=== PATIENT | female | born 1950 | race Caucasian/White ===

== ENCOUNTER → 2017-06-23 | Outpatient (CLI) | payer OTHER, MEDICAID ==
--- NOTE | 2017-06-23 14:05 | MRI ---
History: Right knee pain and patellofemoral chondromalacia. EXAM: NONCONTRAST MRI EXAMINATION OF THE RIGHT KNEE JOINT. Technique: Multi sequence and multiplanar MRI images of the right knee joint were performed at 1.5 [address] using T1, T2, and proton density sequences without IV contrast. Comparison: None. FINDINGS: There is advanced/severe grade 3 superior patellar and patellar facet chondromalacia appreciated. The re is moderate patellofemoral compartment DJD also observed. No significant or severe femoral trochle a or femorotibial chondromalacia is evident. The ACL and PCL are both intact. No displaced meniscal t ear is seen. The collateral ligaments are intact without injury or abnormality. There is a small knee joint effusion. The extensor mechanism of the knee joint is intact. No acute or stress fracture is s een. No aggressive bone marrow lesion is observed. No other knee joint injury or musculoskeletal abno rmalities identified on this examination. IMPRESSION: Advanced/severe Grade 3 superior patellar, median patellar ridge, and bilateral patellar facet chondr omalacia/articular cartilage loss with concomitant patellar osteoarthritis. No other MRI evidence for internal injury or derangement of the knee joint is appreciated. Reported By:
== END ==
LOC: RAD 11:54
PROVIDERS: ATTEND Orthopaedic Surgery
DX: M22.41 Chondromalacia patellae, right knee (principal)
CPT/HCPCS: 73721

== ENCOUNTER → 2017-08-02 | Outpatient (CLI) | payer OTHER, MEDICAID ==
--- NOTE | 2017-08-02 12:26 | RAD ---
Examination: Chest, PA and lateral views History: Preop Findings: Normal appearance of heart, lungs, mediastinum and pleural spaces. Impression: No acute or significant chest findings. Reported By:
[2017-08-02 12:35] LABS: BASOPHILS # (AUTO) 0.1 X10^3/uL (0.0-0.1); BASOPHILS % (AUTO) 0.8 % (0.2-1.0); EOSINOPHILS # (AUTO) 0.1 x10^3/uL (0.0-0.2); HEMATOCRIT 39.6 % (36.0-47.0); HEMOGLOBIN 13.5 g/dL (12.0-16.0); LYMPHOCYTES # (AUTO) 2.1 X10^3/uL (1.3-2.9); LYMPHOCYTES % (AUTO) 33.5 % (21.0-51.0); MEAN CORPUSCULAR HEMOGLOBIN 29.1 pg (27.0-34.0); MEAN CORPUSCULAR HGB CONC 34.1 g/dL (33.0-35.0); MEAN CORPUSCULAR VOLUME 85.5 fL (80.0-100.0); MONOCYTES # (AUTO) 0.4 x10^3/uL (0.3-0.8); MONOCYTES % (AUTO) 6.7 % (0.0-13.0); NEUTROPHILS # (AUTO) 3.6 x10^3/uL (2.2-4.8); PLATELET COUNT 273 X10^3/uL (150.0-450.0); RED BLOOD COUNT 4.63 X10^6/uL (3.5-5.4); RED CELL DISTRIBUTION WIDTH 14.2 % (11.6-16.5); WHITE BLOOD COUNT 6.2 X10^3/uL (3.6-10.0)
[2017-08-02 12:36] LABS: BILIRUBIN,URINE NEGATIVE (NEGATIVE); BLOOD/HEMOGLOBIN,URINE NEGATIVE (NEGATIVE); GLUCOSE, URINE NEGATIVE (NEGATIVE); KETONES,URINE NEGATIVE (NEGATIVE); LEUKOCYTE ESTERASE ,URINE 2+ (NEGATIVE); NITRITES,URINE NEGATIVE (NEGATIVE); PH,URINE 6.5 (5.0 - 8.0); PROTEIN,URINE NEGATIVE (NEGATIVE); UROBILINOGEN,URINE NORMAL (NORMAL)
[2017-08-02 12:47] LABS: APPEARANCE,URINE CLEAR (CLEAR); BACTERIA,URINE NEGATIVE /HPF (NEGATIVE); COLOR,URINE YELLOW (YELLOW); RBC,URINE NONE SEEN /HPF (NEGATIVE); SQUAMOUS EPITHELIAL CELL,UR RARE /HPF (NEGATIVE)
[2017-08-02 12:51] LABS: ALANINE AMINOTRANSFERASE 23 Units/L (12-78); ALBUMIN 3.6 g/dL (3.4-5.0); ALKALINE PHOSPHATASE 71 Units/L (46-116); ASPARTATE AMINO TRANSFERASE 15 Units/L (15-37); BLOOD UREA NITROGEN 16 mg/dL (7-18); CALCIUM 9.1 mg/dL (8.5-10.1); CARBON DIOXIDE 31.1 mmol/L (21-32); CHLORIDE 103 mmol/L (98-107); CREATININE 0.82 mg/dL (0.55-1.02); SODIUM 133 mmol/L (136-145); TOTAL PROTEIN 7.3 g/dL (6.4-8.2); eGFR BLACK RACES > 60 (>60); eGFR NON BLACK RACES > 60 (>60)
[2017-08-02 13:15] LABS: ERYTHROCYTE SEDIMENTATION RATE 13 MM/HOUR (0-20)
== END ==
LOC: LAB 12:05
PROVIDERS: ATTEND Orthopaedic Surgery
DX: Z01.818 Encounter for other preprocedural examination (principal); Z01.810 Encounter for preprocedural cardiovascular examination; Z01.811 Encounter for preprocedural respiratory examination; Z79.899 Other long term (current) drug therapy; Z11.8 Encounter for screening for other infectious and parasitic diseases; M17.11 Unilateral primary osteoarthritis, right knee
CPT/HCPCS: 36415; 71046; 80053; 81001; 85025; 85652; 86140; 87640; 87641; 93005; 93010

== ENCOUNTER → 2017-08-09 | Day surgery (SDC) | payer OTHER, MEDICAID ==
[~2017-08-09] MED LIST: ADRENALINE CHL INJ ONE; ADRENALINE CHL IR ONE; BACTROBAN OINT ONE; BENADRYL INJ 50 MG VIAL IVP PRN; D5 LR 1000 ML 1,000 ML IV ONE; DILAUDID INJ IVP PRN; DIPRIVAN VIAL ONE; FENTANYL INJ 100 mcg ONE; KENALOG INJ 40 MG IM ONE; NS IRRIGATION 1000 ML 1,000 ML with BACITRACIN VIAL 50,000 UNT IR ONE; NS IRRIGATION IR ONE; PERCOCET TAB 5/325 MG PO PRN; PHENERGAN INJ 25 MG IVP PRN; REGLAN INJ 10 MG VIAL IVP PRN; SUPRANE IN ONE; TORADOL 30 MG VIAL ONE; VERSED ONE; XYLOCAINE 2 % (PLAIN) ONE; ZOFRAN INJ 4 MG VIAL IVP PRN; ZOFRAN INJ 4 MG VIAL ONE
[2017-08-09] MEDS: ANCEF 1 GM IV PREMIX* 1 GM/50 ML BAG IV ONE ×2 (08:30→08:40)
[2017-08-09] MEDS: DECADRON INJ ONE ×2 (09:20→10:09)
[2017-08-09] MEDS: MARCAINE 0.25% INJ ONE ×2 (09:20→10:09)
[2017-08-09 12:10] VITALS: BP 111/66
--- NOTE | 2017-08-10 12:59 | OR.GENERIC ---
Post-Op Note Generic - Post-Op Note Operative Report: PREOPERATIVE DIAGNOSIS: RIGHT knee medial meniscal tear and chondromalacia of the patella. POSTOPERATIVE DIAGNOSIS: RIGHT knee 1. complex body tear medial meniscus 2. Chondromalacia changes medial , lateral and patellofemoral compartments. PROCEDURE- RIGHT knee arthroscopic partial medial meniscectomy. RIGHT knee arthroscopic chondroplasty ANESTHESIA: General TOURNIQUET TIME: 54 minutes. BLOOD LOSS: Minimal. SPECIMEN: None. INDICATION- patient is a 66-year-old female who has been dealing with painful knee for months to almost a year now. She has been treated with conservative management without much success. she saw me in my office and medial meniscal tear was suspected and an MRI was ordered. MRI revealed medial meniscal tear. Patient was taken through the natural history and the treatment options. patient opted for a RIGHT knee arthroscopic surgery. The benefits and risks involved with discussed with her As well as the . postoperative period was also explained in detail. Complications including but not limited to infection, neurovascular damage, compartment syndrome, implant breakage, progression of osteoarthritis of the knee, persistence of pain, stiffness of the knee, need for further procedures in the future were explained to them in detail. They verbalized and reported understood. PREOPERATIVE- Patient and the family were met in the preoperative holding area. Consent was obtained again. RIGHT limb was marked. patient was met by the workforce services representative. Patient also got the appropriate antibiotic. PROCEDURE: The patient was brought down to the operating room and transferred from a hospital stretcher to the operating table. General anesthesia was induced and a successful endotracheal intubation was completed. the patient was placed in supine position and the RIGHT tourniquet was applied but was not i Inflated after appropriate padding. The LEFT lower limb was placed in a well-leg sanabria. The bottom of the table was lowered to create 90 of flexion . examination of the RIGHT knee was completed under a Anesthesia. nno gross instability was noted.A thigh post was applied. the RIGHT lower limb was prepped and draped. A proximal thigh tourniquet was inflated and an Esmarch bandage was used to exsanguinate the limb. The tourniquet was then inflated to approximately 100 to 150 mm of mmHg above systolic pressure. The surface landmarks were marked and the proposed lateral portal was marked. The chinyere medial portal was also marked. The portals were infiltrated with local local anesthetic. An 11-blade stab incision was made along the anterolateral aspect for the anterolateral portal. A trocar was then inserted and the arthroscope was then introduced. Once it was confirmed to be within the joint proper, the knee was distended with sterile saline solution. A systematic tour about the knee was performed beginning in the suprapatellar pouch, followed by the patellofemoral region, lateral gutter, posterolateral corner, and then the lateral compartment. Next, the intracondylar notch region was examined and finally, the medial compartment and medial gutter. synovitis was noted in the suprapatellar pouch. No foreign bodies were noticed in the suprapatellar pouch. Grade 3 chondromalacia changes seen on the undersurface of the patella on both the medial as well as the lateral facets. fibrillations hanging from the undersurface of were noted. Correspondingly the trochlea showed grade 2 chondromalacia changes as well as fibrillations. No obvious complete cartilage was noticed. The medial gutter was visualized and was negative for any foreign bodies. The medial compartment was visualized. Grade 2 chondromalacia changes seen in the distal femur as well as proximal tibial surfaces. there was a tear noted on the body of the medial meniscus.The knee was brought into extension and valgus stress applied to visualize the posterior horn. A spinal needle was advanced from the prospective medial portal and was confirmed at the tear would be accessed through the portal. Medial portal established after making a skin incision with a stab #11 knife. A probe passed through the medial portal and the tear of the body of the medial meniscus was probed. It was complex tear of the body which was in the white white region and was not amenable to repair. An up cutting meniscotome was passed through the medial portal and partial medial meniscectomy completed. A shaver was passed through the medial portal and the edges of the meniscus were smoothened. The probe was again passed through the medial portal and the remaining meniscus was found to be no extension of the tear. The rest of the meniscus was probed and was found to be devoid of any significant tears. There was fraying of the medial surface of the medial meniscal body. This was again smoothed and shaved down with a shaver. The intracondylar notch was examined and intact anterior and posterior cruciate ligaments These were tested with a probe and found to be competent without any tears. Now the knee was placed in the [id number] position to open up the lateral compartment. Grade 2 chondromalacia changes seen in the llateral compartment without any copious full -thickness cartilage loss. A shaver was used to smooth and the rest of the meniscus. Again the remaining meniscus was probed and found to be stable with out any obvious tear or extension. The attention was directed to the patellofemoral compartment now. The knee was brought into extension and the shaver was brought in brought in through the medial portal. The fibrillation under the patella was smoothened th the shaver. The arthroscope was removed from the lateral compartment and was placed into the medial portal, and again, a tour of the knee was made this time visualizing it from the medial side and with the arthroscopy probe placed at the lateral portal. There was no further pathology identified. There was no evidence of remaining loose body or other abnormality. All instruments were eventually able to be removed with no evidence of any breakage. The arthroscopy portals were reapproximated using 2-0 nylon in interrupted fashion. Prior to the removal of the arthroscope, 0.5% Marcaine and 2 cc Kenalog was injected into the knee joint before closure. The tourniquet was released. There was no significant bleeding. The wounds were dressed with sterile bandages and a compression wrap from the toes to the mid thigh was placed. The patient was transferred off of the operating table back to a hospital stretcher and taken to the recovery room in fair condition. There was no evidence of any vascular deficit. As the spinal was still in place, we could not fully assess the neurologic status. POSTOPERATIVE PLAN: The patient will be permitted weightbearing as tolerated and is encouraged to frequently flex and extend the knee as well as her ankle. Crutches will be provided for her if she is unable to ambulate without the use of these assistive devices.physical therapy was in the recovery room teaching the patient walking with the help of assistive devices. Appropriate oral analgesics and oral antiinflammatory medications will be provided for the patient. The patient was instructed on ice and elevation to the limb. She will follow up in my office in approximately 6-10 days for postoperative consultation, wound examination, suture removal, and institution of more formalized physical therapy.
== END | disposition home or self-care (01) ==
LOC: SURG1 06:51
PROVIDERS: ATTEND Orthopaedic Surgery
PROC: 0SQC4ZZ Repair Right Knee Joint, Percutaneous Endoscopic Approach (ICD-10-PCS; 2017-08-09)
PROC: 0SBC4ZZ Excision of Right Knee Joint, Percutaneous Endoscopic Approach (ICD-10-PCS; principal; 2017-08-09 08:30)
DX: S83.231A Complex tear of medial meniscus, current injury, right knee, initial encounter (principal); X58.XXXA Exposure to other specified factors, initial encounter; M94.261 Chondromalacia, right knee
CPT/HCPCS: A4222; S0020; J0170; J0690; J1100; J1885; J2001; J2250; J2405; J3010; J3301; J3490; J7120

== ENCOUNTER 2018-01-24 06:39 | Inpatient (IN) ==
[2018-01-24] MEDS ORDERED: D5 LR 1000 ML 1,000 ML IV ONE (06:53)
[2018-01-24] MEDS ORDERED: ANCEF 1 GRAM IV PREMIX* 1 G/50 ML BAG IV ONE (06:53)
[2018-01-24] MEDS ORDERED: FENTANYL INJ 250 mcg ONE (07:09)
[2018-01-24] MEDS ORDERED: NAROPIN 0.75% EPI ONE (07:09)
[2018-01-24 07:28] VITALS: BMI 28.7
[2018-01-24] MEDS ORDERED: NS IRRIGATION IR ONE ×2 (09:46)
[2018-01-24] MEDS ORDERED: BACITRACIN IR ONE ×2 (09:46)
[2018-01-24] MEDS ORDERED: NS IRRIGATION 1000 ML 1,000 ML with BACITRACIN VIAL 50,000 UNIT IR ONE ×2 (09:46)
[2018-01-24] MEDS ORDERED: LR 1000 ML IV 1,000 ML IV ONE (10:17)
[2018-01-24] MEDS ORDERED: DILAUDID INJ ONE (11:15)
[2018-01-24] MEDS ORDERED: BACITRACIN VIAL ONE (11:17)
[2018-01-24] MEDS ORDERED: ZOFRAN INJ 4 MG VIAL IVP PRN ×2 (11:28→15:53)
[2018-01-24] MEDS ORDERED: DILAUDID INJ IVP PRN (11:28)
[2018-01-24] MEDS ORDERED: REGLAN INJ 10 MG VIAL IVP PRN (11:28)
[2018-01-24] MEDS ORDERED: PHENERGAN INJ 25 MG IVP PRN (11:28)
[2018-01-24] MEDS ORDERED: BENADRYL INJ 50 MG VIAL IVP PRN (11:28)
[2018-01-24] MEDS ORDERED: MORPHINE SULFATE PCA 30 MG IV PRN (11:50)
[2018-01-24] MEDS: LR 1000 ML IV 1,000 ML IV SCH (13:15)
[2018-01-24] MEDS ORDERED: XYLOCAINE 2 % (PLAIN) ONE (15:45)
[2018-01-24] MEDS ORDERED: DIPRIVAN VIAL ONE (15:45)
[2018-01-24] MEDS ORDERED: NORCURON INJ 10 MG VIAL ONE (15:45)
[2018-01-24] MEDS ORDERED: NEOSTIGMINE INJ ONE (15:45)
[2018-01-24] MEDS ORDERED: ZOFRAN INJ 4 MG VIAL ONE (15:45)
[2018-01-24] MEDS ORDERED: SUPRANE IN ONE (15:45)
[2018-01-24] MEDS ORDERED: QUELICIN (OR ANECTINE) ONE (15:45)
[2018-01-24] MEDS ORDERED: VERSED ONE (15:45)
[2018-01-24] MEDS ORDERED: ROBINUL ONE (15:45)
--- NOTE | 2018-01-24 16:22 | RAD ---
HISTORY: Postop knee replacement Study: Right knee: Two views Comparison: None Findings: These show a right knee prosthesis to be present. The components are imbedded in methacrylate. A stein rgical drain is present. Gas is noted within the joint space and subcutaneous tissues. Surgical sta ples overlie the anterior knee. IMPRESSION: 1. A right knee prosthesis is present. 2. No complicating features are noted. Reported By:
[2018-01-24] MEDS: VANCOMYCIN HCL 1 GM VIAL 1 G in D5W 250 ML IV 250 ML IV SCH (20:41)
[2018-01-24] MEDS: LOVENOX INJ 30 MG SYR SC SCH (20:42)
[2018-01-25 05:28] LABS: BASOPHILS % (AUTO) 0.3 % (0.2-1.0); HEMATOCRIT 31.5 % (36.0-47.0); HEMOGLOBIN 10.9 g/dL (12.0-16.0); LYMPHOCYTES # (AUTO) 1.5 X10^3/uL (1.3-2.9); LYMPHOCYTES % (AUTO) 11.3 % (21.0-51.0); MEAN CORPUSCULAR HEMOGLOBIN 29.1 pg (27.0-34.0); MEAN CORPUSCULAR HGB CONC 34.7 g/dL (33.0-35.0); MEAN CORPUSCULAR VOLUME 83.9 fL (80.0-100.0); MEAN PLATELET VOLUME 8.6 fL (7.4-11.0); MONOCYTES # (AUTO) 1.2 x10^3/uL (0.3-0.8); MONOCYTES % (AUTO) 8.9 % (0.0-13.0); NEUTROPHILS # (AUTO) 10.5 x10^3/uL (2.2-4.8); NEUTROPHILS % (AUTO) 79.5 % (42.0-75.0); PLATELET COUNT 243 X10^3/uL (150.0-450.0); RED BLOOD COUNT 3.75 X10^6/uL (3.5-5.4); RED CELL DISTRIBUTION WIDTH 13.9 % (11.6-16.5); WHITE BLOOD COUNT 13.2 X10^3/uL (3.6-10.0)
[2018-01-25 05:32] LABS: BLOOD UREA NITROGEN 10 mg/dL (7-18); CALCIUM 8.6 mg/dL (8.5-10.1); CARBON DIOXIDE 31.6 mmol/L (21-32); CHLORIDE 101 mmol/L (98-107); COR NA(FOR HYPERGLY) 137 mmol/L (136-145); CREATININE 0.77 mg/dL (0.55-1.02); SODIUM 136 mmol/L (136-145); eGFR NON BLACK RACES > 60 (>60)
[2018-01-25] MEDS: LR 1000 ML IV 1,000 ML IV SCH ×3 (07:24→11:03)
[2018-01-25] MEDS: LOVENOX INJ 30 MG SYR SC SCH ×2 (08:33→20:29)
[2018-01-25] MEDS: VANCOMYCIN HCL 1 GM VIAL 1 G in D5W 250 ML IV 250 ML IV SCH (08:33)
--- NOTE | 2018-01-25 09:42 | OR.GENERIC ---
Post-Op Note Generic - Post-Op Note Operative Report: PREOPERATIVE DIAGNOSIS: Degenerative arthritis of the RIGHT knee. POSTOPERATIVE DIAGNOSIS: Degenerative arthritis of the RIGHT knee. PROCEDURE PERFORMED: RIGHT Total knee replacement BLOOD LOSS: 50 cc. ANESTHESIA: General. IMPLANT USED FOR PROCEDURE: MARISA triathlon Femur-posterior stabilized , size 4 Tibia-cemented stem, size 4 , stem 1250 mm Patella-symmetric 29 mm 8 mm Tibial bearing insert- posterior stabilized-13 mm, size 4 GROSS INTRAOPERATIVE FINDINGS: Degenerative naranjo of three compartments of the trochlea, the medial, as well as the lateral femoral condyles as well was the plateau. severe genu varum and flexion deformity. loose bodies in the posterior part of the knee. HISTORY: This is a 76-year-old female with complaints of RIGHT knee pain for several years and increased intensity in the past several months where it has affected her activities of daily living. She attempted conservative treatment, which includes anti-inflammatory medications as well as cortisone and Synvisc. This has only provided her with temporary relief. she has had a RIGHT knee arthroscopy which did not help her. It is for that reason, she elected to undergo the above-named procedure. All risks as well as complications were discussed with the patient, which include, but are not limited to infection, deep vein thrombosis, pulmonary embolism, need for further surgery, and further pain. she has agreed to undergo this procedure and a consent was obtained preoperatively. limb was marked. got adductor canal block. got appropriate antibiotics. PROCEDURE: The patient was wheeled back to operating room and was placed supine on the operating room table. At this time, a nonsterile tourniquet was placed on the RIGHT upper thigh, but not inflated. An Esmarch was then used to exsanguinate the extremity and the left extremity was then prepped and draped in the usual sterile fashion for this procedure. The tourniquet was then inflated to 325 mmHg. At this time, a standard midline incision was made. medial parapatellar arthrotomy was completed. medial release of proximl tibia, fat pad excision, ant femoral synovium excision was ompleted. Medail and lateral meniscua and ACL and PCL was excised.the patella was everted. At this time with a better exposure of the proximal tibia, we placed external tibial guide. This was placed with longitudinal axis of the tibia and carefully positioned in order to obtain an optimal cut for the proximal tibia. At this time with careful soft tissue retraction and protection, an oscillating saw was used to make a proximal tibial osteotomy. Prior to the osteotomy, the cut was checked with a depth gauge in order to assure appropriate bony resection. At this time, I then used a drill to cannulate the distal femoral canal in order to place the intramedullary guide. Distal femroal osteotomy was completed. siz 4 femur was determined. Epicondylar axis was determined. 4 in 1 block placed and bone cuts complted. posterior osteophytes removed with osteotome and curette. box cut finished. The block was then removed and an osteotome was then used to remove all the bony cut pieces. the tibia was sized to 4. Rotation was assessed and the proximal tibia was prepared for both the intramedullary stem as well as the flange.Once this was removed, we then implanted our trial components of size 4 to the femur and a size 4 mm tibial tray with 13 mm plastic articulating surface. The knee was taken through range of motion and revealed excellent femorotibial articulation.patient had complete extension. Flexion to 120. Stable in extension and flexion. The 11 mm articulating polyethylene was also tried and it was found to be too loose. The patella was prepared with the jig after and resected 8 mm which maintained its initial thickness. At this time, the prosthesis was removed. we then copiously irrigated the wound and then suctioned it dry to get ready and prepped for cementation of the drilled components.posterior capsular injection was completed. At this time, polymethyl methacrylate cement was then mixed. The cement was placed on the tibial surface as well as the underneath surface of the component. The component was then placed and impacted with excess cement removed. In a similar fashion, the femoral and patellar component was also placed. A 13 mm plastic tray was then placed and the leg held in full extension and compression in order to obtain adequate bony cement content. Once the cement was fully hardened, the knee was flexed and a small osteotome was used to remove any extruding cement from around the prosthesis of the bone. Once this was performed, copious irrigation was used to irrigate the wound and the wound was then suctioned dry. We decided to go with a #13 mm polyethylene tray. At this time, this was placed to the tibial articulation and then left in place. This was rechecked with careful attention to detail with checking no soft tissue interpositioned between the polyethylene tray and the metal tray of the tibia. The knee was again taken through range of motion and revealed excellent tracking of the patella with good femur and tibial contact. A drain was placed and cut to length. At this time, the knee was irrigated and copiously suction dried. #1-0 Vicryl suture was then used to approximate the medial parapatellar arthrotomy in figure -of-eight fashion. A tight capsular closure was performed. tourniquet was deflated and there tight capsular repair was watertight.At this time, the knee was again taken through range of motion to assure tight capsular closure. At this time, copious irrigation was used to irrigate the superficial wound. #2-0 Vicryl was used to approximate the wound with [id number] inverted suture. The skin was then approximated with iris. The leg was then cleansed. Sterile dressing consisting of Adaptic, 4x4, ABDs, and Kerlix roll were then applied. At this time, the patient was extubated and transferred to recovery in stable condition. Prognosis is good for this patient.post op xrays were satisfactory. the family was updated about the surgery. Postoperative instructions have been discussed with him. Patient is allowed full weightbearing without any restrictions. We will have her enough pain control for her. We will get physical therapy for her rehabilitation. We will also start her on LOVENOX.
[2018-01-25] MEDS ORDERED: CALCIUM CARBONATE 1200 MG PO SCH (10:00)
[2018-01-25] MEDS ORDERED: MULTIVITAMIN IRON FOLIC ACID PO SCH (10:00)
[2018-01-25] MEDS: TUMS PO SCH (10:49)
[2018-01-25] MEDS: PROTONIX TAB 40 MG PO SCH (10:49)
[2018-01-25] MEDS: TAB-A-VITE PO SCH (10:49)
[2018-01-25] MEDS: VITAMIN C PO SCH (10:49)
[2018-01-25] MEDS: LIPITOR TAB 20 MG PO SCH (10:49)
[2018-01-25] MEDS ORDERED: MORPHINE SULFATE INJ 2 MG INJ IVP PRN (11:04)
[2018-01-25] MEDS: NEURONTIN CAP 100 MG PO SCH ×2 (12:30→20:30)
[2018-01-25] MEDS: MOTRIN TAB 800 MG PO SCH ×2 (12:35→20:30)
[2018-01-25] MEDS: ROXICODONE TAB 5 MG PO PRN ×3 (12:46→23:46)
[2018-01-26] MEDS: LR 1000 ML IV 1,000 ML IV SCH ×2 (00:28→01:36)
[2018-01-26] MEDS: NEURONTIN CAP 100 MG PO SCH ×3 (04:24→20:31)
[2018-01-26] MEDS: MOTRIN TAB 800 MG PO SCH ×3 (04:24→20:31)
[2018-01-26 05:02] LABS: BASOPHILS % (AUTO) 0.4 % (0.2-1.0); EOSINOPHILS # (AUTO) 0.1 x10^3/uL (0.0-0.2); EOSINOPHILS % (AUTO) 0.8 % (0.9-2.9); HEMATOCRIT 26.3 % (36.0-47.0); HEMOGLOBIN 9.2 g/dL (12.0-16.0); LYMPHOCYTES # (AUTO) 2.4 X10^3/uL (1.3-2.9); LYMPHOCYTES % (AUTO) 21.4 % (21.0-51.0); MEAN CORPUSCULAR HEMOGLOBIN 29.5 pg (27.0-34.0); MEAN CORPUSCULAR HGB CONC 35.1 g/dL (33.0-35.0); MEAN CORPUSCULAR VOLUME 83.9 fL (80.0-100.0); MEAN PLATELET VOLUME 8.3 fL (7.4-11.0); MONOCYTES # (AUTO) 1.1 x10^3/uL (0.3-0.8); NEUTROPHILS # (AUTO) 7.5 x10^3/uL (2.2-4.8); NEUTROPHILS % (AUTO) 67.4 % (42.0-75.0); PLATELET COUNT 199 X10^3/uL (150.0-450.0); RED BLOOD COUNT 3.13 X10^6/uL (3.5-5.4); RED CELL DISTRIBUTION WIDTH 14.1 % (11.6-16.5); WHITE BLOOD COUNT 11.1 X10^3/uL (3.6-10.0)
[2018-01-26 05:05] LABS: BLOOD UREA NITROGEN 5 mg/dL (7-18); CALCIUM 8.3 mg/dL (8.5-10.1); CARBON DIOXIDE 32.5 mmol/L (21-32); CHLORIDE 105 mmol/L (98-107); COR NA(FOR HYPERGLY) 141 mmol/L (136-145); CREATININE 0.71 mg/dL (0.55-1.02); SODIUM 141 mmol/L (136-145); eGFR NON BLACK RACES > 60 (>60)
[2018-01-26] MEDS ORDERED: K-LYTE EFFERVESCENT PO ONE (05:27)
[2018-01-26] MEDS ORDERED: POTASSIUM CHLORIDE LIQ 20 MEQ UDC PO PRN (08:00)
[2018-01-26] MEDS ORDERED: K-RIDER 10 MEQ/NS 100 ML 10 MEQ/100 ML BAG IV PRN (08:00)
[2018-01-26] MEDS ORDERED: POTASSIUM CHL 60 MEQ/NS 0.45% 500 ML IV PRN (08:00)
[2018-01-26] MEDS ORDERED: K-LYTE EFFERVESCENT PO PRN (08:00)
[2018-01-26] MEDS ORDERED: POTASSIUM CHL 40 MEQ/NS 0.45% 500 ML IV PRN (08:00)
--- NOTE | 2018-01-26 08:11 | PCM.PROG ---
Progress Note - Progress Note for Day of Date of Exam: 01/25/18 - Subjective Subjective: IS DAY 1 STATUS POST RIGHT TOTAL KNEE PLACEMENT. TODAY, SHE IS ALERT AND ORIENTED, LYING IN BED ON MORNING ROUNDS. SHE IS NOTED WITH COMPLAINTS OF RIGHT KNEE PAIN. ON EXAMINATION, THERE IS A DRESSING TO RIGHT KNEE. DRESSING IS DRY AND INTACT WITH NO SIGNS OR SX INFECTION NOTED TO SITE. THERE IS A HEMOVAC NOTED TO DRAINAGE AT BEDSIDE. PATIENT REPORTS THAT PAIN IS TOLERABLE AT THIS TIME AND IS FOR THE MOST PART BEING CONTROLLED BY THE CURRENT MEDICATION THAT SHE IS ON. HER VITALS TODAY ARE [id number]%RA-128/56. LABS WERE OBTAINED. ABNORMAL LAB VALUES INCLUDE THE FOLLOWING: WBC 13.2, HGB 10.9, HCT 31.5, GLUCOSE 132. PHYSICAL THERAPY CONTINUES TO WORK WITH PATIENT THIS MORNING. TODAY, WE WILL CONTINUE WITH CURRENT PLAN OF CARE. WILL CONTINUE TO MONITOR PATIENT. OTHERWISE, WE WILL FOLLOW UP WITH AM LABS AND CONTINUE TO MONITOR PATIENT. - Past Medical Family Social History Past Med/Fam/Surg Hx: No changes since H&P Allergies: Allergies Sulfa (Sulfonamide Antibiotics) [SULFA] Allergy (Verified 08/02/17 15:02) - Review of Systems ROS: No change since H&P - Vital Signs and I&O's Vital Signs: Temperature 98.6 F Pulse Rate [Left Brachial] 96 Pulse Rate 82 Respiratory Rate 18 Blood Pressure [Left Arm] 94/55 Blood Pressure 121/61 O2 Sat by Pulse Oximetry 91 Intake and Output: Intake & Output 01/23/18 01/24/18 01/25/18 01/26/18 11:59 11:59 11:59 11:59 Intake Total 6550 / 6550 1895 / 1895 1350 / 1350 Output Total 5400 / 5400 1300 / 1300 1675 / 1675 Balance 1150 / 1150 595 / 595 -325 / -325 - Physical Exam Oriented: Normal Eyes: Normal Ear: Normal Nose: Normal Throat: Normal Respiratory: Normal Cardiovascular: Tachycardia. negative: S3, S4, Murmur : Normal Auscultation: Bowel Sounds: Normal Palpation: Normal Tenderness: Normal Skin: Wound (RIGHT KNEE SURGICAL WOUND ) Musculoskeletal: Right, Knee, Tender Psychiatric: Normal Mood Description: Calm Affect: Normal Speech Pattern: Clear, Appropriate - Laboratory and Diagnostics Result Diagrams: 01/26/18 04:30 01/26/18 04:30 Labs: Laboratory WBC 11.1 X10^3/uL (3.6-10.0) H 01/26/18 04:30 RBC 3.13 X10^6/uL (3.5-5.4) L 01/26/18 04:30 Hgb 9.2 g/dL (12.0-16.0) L 01/26/18 04:30 Hct 26.3 % (36.0-47.0) L 01/26/18 04:30 MCV 83.9 fL (80.0-100.0) 01/26/18 04:30 MCH 29.5 pg (27.0-34.0) 01/26/18 04:30 MCHC 35.1 g/dL (33.0-35.0) H 01/26/18 04:30 RDW 14.1 % (11.6-16.5) 01/26/18 04:30 Plt Count 199 X10^3/uL (150.0-450.0) 01/26/18 04:30 MPV 8.3 fL (7.4-11.0) 01/26/18 04:30 Neut % (Auto) 67.4 % (42.0-75.0) 01/26/18 04:30 Lymph % (Auto) 21.4 % (21.0-51.0) 01/26/18 04:30 Pitkin % (Auto) 10.0 % (0.0-13.0) 01/26/18 04:30 Eos % (Auto) 0.8 % (0.9-2.9) L 01/26/18 04:30 Baso % (Auto) 0.4 % (0.2-1.0) 01/26/18 04:30 Neut # (Auto) 7.5 x10^3/uL (2.2-4.8) H 01/26/18 04:30 Lymph # (Auto) 2.4 X10^3/uL (1.3-2.9) 01/26/18 04:30 Pitkin # (Auto) 1.1 x10^3/uL (0.3-0.8) H 01/26/18 04:30 Eos # (Auto) 0.1 x10^3/uL (0.0-0.2) 01/26/18 04:30 Baso # (Auto) 0.0 X10^3/uL (0.0-0.1) 01/26/18 04:30 Absolute Nucleated RBC 0.0 /100WBC 01/26/18 04:30 Sodium 141 mmol/L (136-145) 01/26/18 04:30 Corrected Sodium 141 mmol/L (136-145) 01/26/18 04:30 Potassium 3.2 mmol/L (3.5-5.1) L 01/26/18 04:30 Chloride 105 mmol/L (98-107) 01/26/18 04:30 Carbon Dioxide 32.5 mmol/L (21-32) H 01/26/18 04:30 BUN 5 mg/dL (7-18) L 01/26/18 04:30 Creatinine 0.71 mg/dL (0.55-1.02) 01/26/18 04:30 Est GFR (MDRD) Af Amer > 60 (>60) 01/26/18 04:30 Est GFR (MDRD) Non-Af > 60 (>60) 01/26/18 04:30 Glucose 117 mg/dL (65-99) H 01/26/18 04:30 Calcium 8.3 mg/dL (8.5-10.1) L 01/26/18 04:30 Magnesium 1.8 mg/dL (1.7-2.9) 01/26/18 04:30 - Plan (1) Status post right knee replacement Status: Acute Plan: WOUND CARE, PAIN MANAGEMENT, PHYSICAL THERAPY, DVT PROPHYLAXIS, CONTINUE TO MONITOR
[2018-01-26] MEDS ORDERED: PHARMACY COMMENT IV NR (08:30)
[2018-01-26] MEDS: VITAMIN C PO SCH (08:58)
[2018-01-26] MEDS: LOVENOX INJ 30 MG SYR SC SCH ×2 (08:58→20:30)
[2018-01-26] MEDS: LIPITOR TAB 20 MG PO SCH (08:59)
[2018-01-26] MEDS: PROTONIX TAB 40 MG PO SCH (08:59)
[2018-01-26] MEDS: TAB-A-VITE PO SCH (08:59)
[2018-01-26] MEDS: TUMS PO SCH (09:00)
[2018-01-26 09:08] LABS: CREATININE 0.84 mg/dL (0.55-1.02)
[2018-01-26] MEDS: MAGNESIUM SULFATE 1 GRAM/100 mL PREMIX 1 GM/100 ML BAG IV PRN ×2 (09:32→10:50)
--- NOTE | 2018-01-26 13:37 | PCM.PROG ---
Progress Note - Progress Note for Day of Date of Exam: 01/26/18 - Subjective Subjective: POD 2 doing well. pain well controlled. PT making progress. afebrile. stale vitals. drain to be removed rtoday. she on PO pain meds now. plan on discharging her. - Past Medical Family Social History Past Med/Fam/Surg Hx: No changes since H&P Allergies: Allergies Sulfa (Sulfonamide Antibiotics) [SULFA] Allergy (Verified 08/02/17 15:02) - Review of Systems ROS: No change since H&P - Vital Signs and I&O's Vital Signs: Temperature 98.6 F Pulse Rate [Left Brachial] 99 Pulse Rate 82 Respiratory Rate 20 Blood Pressure [Left Arm] 106/58 Blood Pressure 121/61 O2 Sat by Pulse Oximetry 93 Intake and Output: Intake & Output 01/23/18 01/24/18 01/25/18 01/26/18 23:59 23:59 23:59 23:59 Intake Total 7845 / 7845 1460 / 1460 490 / 490 Output Total 5675 / 5675 2650 / 2650 50 / 50 Balance 2170 / 2170 -1190 / -1190 440 / 440 - Physical Exam Oriented: Normal Eyes: Normal Ear: Normal Nose: Normal Throat: Normal Respiratory: Normal Cardiovascular: Tachycardia. negative: S3, S4, Murmur : Normal Auscultation: Bowel Sounds: Normal Tenderness: Normal Skin: Wound (RIGHT KNEE SURGICAL WOUND ) Musculoskeletal: Right, Knee, Tender Psychiatric: Normal Mood Description: Calm Affect: Normal Speech Pattern: Clear, Appropriate - Laboratory and Diagnostics Result Diagrams: 01/26/18 04:30 01/26/18 08:45 Labs: Laboratory WBC 11.1 X10^3/uL (3.6-10.0) H 01/26/18 04:30 RBC 3.13 X10^6/uL (3.5-5.4) L 01/26/18 04:30 Hgb 9.2 g/dL (12.0-16.0) L 01/26/18 04:30 Hct 26.3 % (36.0-47.0) L 01/26/18 04:30 MCV 83.9 fL (80.0-100.0) 01/26/18 04:30 MCH 29.5 pg (27.0-34.0) 01/26/18 04:30 MCHC 35.1 g/dL (33.0-35.0) H 01/26/18 04:30 RDW 14.1 % (11.6-16.5) 01/26/18 04:30 Plt Count 199 X10^3/uL (150.0-450.0) 01/26/18 04:30 MPV 8.3 fL (7.4-11.0) 01/26/18 04:30 Neut % (Auto) 67.4 % (42.0-75.0) 01/26/18 04:30 Lymph % (Auto) 21.4 % (21.0-51.0) 01/26/18 04:30 [place] % (Auto) 10.0 % (0.0-13.0) 01/26/18 04:30 Eos % (Auto) 0.8 % (0.9-2.9) L 01/26/18 04:30 Baso % (Auto) 0.4 % (0.2-1.0) 01/26/18 04:30 Neut # (Auto) 7.5 x10^3/uL (2.2-4.8) H 01/26/18 04:30 Lymph # (Auto) 2.4 X10^3/uL (1.3-2.9) 01/26/18 04:30 [place] # (Auto) 1.1 x10^3/uL (0.3-0.8) H 01/26/18 04:30 Eos # (Auto) 0.1 x10^3/uL (0.0-0.2) 01/26/18 04:30 Baso # (Auto) 0.0 X10^3/uL (0.0-0.1) 01/26/18 04:30 Absolute Nucleated RBC 0.0 /100WBC 01/26/18 04:30 Sodium 141 mmol/L (136-145) 01/26/18 04:30 Corrected Sodium 141 mmol/L (136-145) 01/26/18 04:30 Potassium 3.2 mmol/L (3.5-5.1) L 01/26/18 08:45 Chloride 105 mmol/L (98-107) 01/26/18 04:30 Carbon Dioxide 32.5 mmol/L (21-32) H 01/26/18 04:30 BUN 5 mg/dL (7-18) L 01/26/18 04:30 Creatinine 0.84 mg/dL (0.55-1.02) 01/26/18 08:45 Est GFR (MDRD) Af Amer > 60 (>60) 01/26/18 04:30 Est GFR (MDRD) Non-Af > 60 (>60) 01/26/18 04:30 Glucose 117 mg/dL (65-99) H 01/26/18 04:30 Calcium 8.3 mg/dL (8.5-10.1) L 01/26/18 04:30 Magnesium 1.8 mg/dL (1.7-2.9) 01/26/18 04:30 Vancomycin Trough 2.0 ug/mL (15-20) L 01/26/18 08:45 - Plan (1) Status post right knee replacement Status: Acute Plan: WOUND CARE, PAIN MANAGEMENT, PHYSICAL THERAPY, DVT PROPHYLAXIS, CONTINUE TO MONITOR
[2018-01-26] MEDS: ROXICODONE TAB 5 MG PO PRN (14:44)
--- NOTE | 2018-01-26 20:20 | PCM.PROG ---
Progress Note - Progress Note for Day of Date of Exam: 01/26/18 - Subjective Subjective: IS DAY 2 STATUS POST RIGHT TOTAL KNEE PLACEMENT. TODAY, SHE IS ALERT AND ORIENTED, LYING IN BED ON MORNING ROUNDS. SHE IS NOTED WITH COMPLAINTS OF RIGHT KNEE PAIN, WHICH IS TO BE EXPECTED. SHE CONTINUES TO REPORT THAT PAIN IS TOLERABLE WITH THE PRESCRIBED PAIN MEDICATIONS. ON EXAMINATION, THERE IS A DRESSING TO RIGHT KNEE. DRESSING IS DRY AND INTACT WITH NO SIGNS OR SX INFECTION NOTED TO SITE. THERE IS A HEMOVAC NOTED TO DRAINAGE AT BEDSIDE. HER VITALS TODAY ARE 98.6-99-20-93%-106/58. LABS WERE OBTAINED. ABNORMAL LAB VALUES INCLUDE THE FOLLOWING: WBC 11.1, RBC 3.13, HGB 9.2, HCT 26.3, POTASSIUM 3.2, CARBON DIOXIDE 32.5, BUN 5, GLUCOSE 117, CALCIUM 8.3. PHYSICAL THERAPY CONTINUES TO WORK WITH PATIENT THIS MORNING. THEY REPORT THAT SHE IS TOLERATING THERAPY WELL. AFTER DISCHARGE, PATIENT WILL GO TO [facility] FOR PHYSICAL THERAPY PRIOR TO RETURNING HOME. TODAY, WE WILL CONTINUE WITH CURRENT PLAN OF CARE. WILL CONTINUE TO MONITOR PATIENT. OTHERWISE, WE WILL FOLLOW UP WITH AM LABS AND CONTINUE TO MONITOR PATIENT. - Past Medical Family Social History Past Med/Fam/Surg Hx: No changes since H&P Allergies: Allergies Sulfa (Sulfonamide Antibiotics) [SULFA] Allergy (Verified 08/02/17 15:02) - Review of Systems ROS: No change since H&P - Vital Signs and I&O's Vital Signs: Temperature 99.8 F Pulse Rate [Left Brachial] 114 Pulse Rate 82 Respiratory Rate 20 Blood Pressure [Left Arm] 119/57 Blood Pressure 121/61 O2 Sat by Pulse Oximetry 97 Intake and Output: Intake & Output 01/24/18 01/25/18 01/26/18 01/27/18 11:59 11:59 11:59 11:59 Intake Total 6550 / 6550 1895 / 1895 1350 / 1350 1140 / 1140 Output Total 5400 / 5400 1300 / 1300 1675 / 1675 50 / 50 Balance 1150 / 1150 595 / 595 -325 / -325 1090 / 1090 - Physical Exam Oriented: Normal Eyes: Normal Ear: Normal Nose: Normal Throat: Normal Respiratory: Normal Cardiovascular: Normal. negative: S3, S4, Murmur : Normal Auscultation: Bowel Sounds: Normal Palpation: Normal Tenderness: Normal Skin: Wound (RIGHT KNEE SURGICAL WOUND ) Musculoskeletal: Right, Knee, Tender Psychiatric: Normal Mood Description: Calm Affect: Normal Speech Pattern: Clear, Appropriate - Laboratory and Diagnostics Result Diagrams: 01/26/18 04:30 01/26/18 08:45 Labs: Laboratory WBC 11.1 X10^3/uL (3.6-10.0) H 01/26/18 04:30 RBC 3.13 X10^6/uL (3.5-5.4) L 01/26/18 04:30 Hgb 9.2 g/dL (12.0-16.0) L 01/26/18 04:30 Hct 26.3 % (36.0-47.0) L 01/26/18 04:30 MCV 83.9 fL (80.0-100.0) 01/26/18 04:30 MCH 29.5 pg (27.0-34.0) 01/26/18 04:30 MCHC 35.1 g/dL (33.0-35.0) H 01/26/18 04:30 RDW 14.1 % (11.6-16.5) 01/26/18 04:30 Plt Count 199 X10^3/uL (150.0-450.0) 01/26/18 04:30 MPV 8.3 fL (7.4-11.0) 01/26/18 04:30 Neut % (Auto) 67.4 % (42.0-75.0) 01/26/18 04:30 Lymph % (Auto) 21.4 % (21.0-51.0) 01/26/18 04:30 Mercer % (Auto) 10.0 % (0.0-13.0) 01/26/18 04:30 Eos % (Auto) 0.8 % (0.9-2.9) L 01/26/18 04:30 Baso % (Auto) 0.4 % (0.2-1.0) 01/26/18 04:30 Neut # (Auto) 7.5 x10^3/uL (2.2-4.8) H 01/26/18 04:30 Lymph # (Auto) 2.4 X10^3/uL (1.3-2.9) 01/26/18 04:30 Mercer # (Auto) 1.1 x10^3/uL (0.3-0.8) H 01/26/18 04:30 Eos # (Auto) 0.1 x10^3/uL (0.0-0.2) 01/26/18 04:30 Baso # (Auto) 0.0 X10^3/uL (0.0-0.1) 01/26/18 04:30 Absolute Nucleated RBC 0.0 /100WBC 01/26/18 04:30 Sodium 141 mmol/L (136-145) 01/26/18 04:30 Corrected Sodium 141 mmol/L (136-145) 01/26/18 04:30 Potassium 3.2 mmol/L (3.5-5.1) L 01/26/18 08:45 Chloride 105 mmol/L (98-107) 01/26/18 04:30 Carbon Dioxide 32.5 mmol/L (21-32) H 01/26/18 04:30 BUN 5 mg/dL (7-18) L 01/26/18 04:30 Creatinine 0.84 mg/dL (0.55-1.02) 01/26/18 08:45 Est GFR (MDRD) Af Amer > 60 (>60) 01/26/18 04:30 Est GFR (MDRD) Non-Af > 60 (>60) 01/26/18 04:30 Glucose 117 mg/dL (65-99) H 01/26/18 04:30 Calcium 8.3 mg/dL (8.5-10.1) L 01/26/18 04:30 Magnesium 1.8 mg/dL (1.7-2.9) 01/26/18 04:30 Vancomycin Trough 2.0 ug/mL (15-20) L 01/26/18 08:45 - Plan (1) Status post right knee replacement Status: Acute Plan: WOUND CARE, PAIN MANAGEMENT, PHYSICAL THERAPY, DVT PROPHYLAXIS, CONTINUE TO MONITOR
[2018-01-27] MEDS: LR 1000 ML IV 1,000 ML IV SCH (03:12)
[2018-01-27] MEDS: MOTRIN TAB 800 MG PO SCH ×2 (05:18→12:59)
[2018-01-27 05:19] LABS: BASOPHILS % (AUTO) 0.5 % (0.2-1.0); EOSINOPHILS # (AUTO) 0.2 x10^3/uL (0.0-0.2); EOSINOPHILS % (AUTO) 1.7 % (0.9-2.9); HEMATOCRIT 26.5 % (36.0-47.0); HEMOGLOBIN 9.4 g/dL (12.0-16.0); LYMPHOCYTES # (AUTO) 2.5 X10^3/uL (1.3-2.9); LYMPHOCYTES % (AUTO) 23.5 % (21.0-51.0); MEAN CORPUSCULAR HEMOGLOBIN 29.6 pg (27.0-34.0); MEAN CORPUSCULAR HGB CONC 35.4 g/dL (33.0-35.0); MEAN CORPUSCULAR VOLUME 83.8 fL (80.0-100.0); MEAN PLATELET VOLUME 8.6 fL (7.4-11.0); MONOCYTES # (AUTO) 0.9 x10^3/uL (0.3-0.8); NEUTROPHILS # (AUTO) 6.9 x10^3/uL (2.2-4.8); NEUTROPHILS % (AUTO) 65.3 % (42.0-75.0); PLATELET COUNT 205 X10^3/uL (150.0-450.0); RED BLOOD COUNT 3.16 X10^6/uL (3.5-5.4); RED CELL DISTRIBUTION WIDTH 14.2 % (11.6-16.5); WHITE BLOOD COUNT 10.6 X10^3/uL (3.6-10.0)
[2018-01-27] MEDS: NEURONTIN CAP 100 MG PO SCH ×2 (05:19→13:00)
[2018-01-27 05:23] LABS: BLOOD UREA NITROGEN 5 mg/dL (7-18); CARBON DIOXIDE 28.3 mmol/L (21-32); CHLORIDE 107 mmol/L (98-107); CREATININE 0.66 mg/dL (0.55-1.02); SODIUM 141 mmol/L (136-145); eGFR NON BLACK RACES > 60 (>60)
[2018-01-27] MEDS: LOVENOX INJ 30 MG SYR SC SCH (09:36)
[2018-01-27] MEDS: VITAMIN C PO SCH (09:36)
[2018-01-27] MEDS: PROTONIX TAB 40 MG PO SCH (09:36)
[2018-01-27] MEDS: TUMS PO SCH (09:36)
[2018-01-27] MEDS: LIPITOR TAB 20 MG PO SCH (09:36)
[2018-01-27] MEDS: TAB-A-VITE PO SCH (09:36)
[2018-01-27 12:48] VITALS: BP 109/59
[2018-01-27] MEDS ORDERED: NORCO 5/325 MG TAB PO PRN ×2 (12:52→13:52)
[2018-01-27] MEDS ORDERED: NORCO 5/325 MG TAB ONE (12:55)
--- NOTE | 2018-03-14 21:56 | DR.CARTERD ---
- Discharge Summary for: Discharge Summary for Date of:: 01/27/18 - Admission Date Date of Admission: 01/24/18 - Admission Diagnoses Admission Diagnosis: (1) Status post right knee replacement (2) Right knee pain - Discharge Date Discharge Date: 01/27/18 - Discharge Diagnoses Discharge Diagnosis: (1) Status post right knee replacement (2) Right knee pain - Hospital Course Hospital Course: Day one, Patient presented to the hospital as a direct admission for a scheduled surgery, per Dr. Peralta. Patient noted with a known case of arthritis of the right knee. The patient has tried and failed conservative management. She stated most of the pain was on the medial side, as well as the lateral side. The patient had difficulty climbing up and down stairs. The patient had difficulty getting in and out of the car. The patient had pain with flexion of the knee. The patient had multiple cortisone injections to the knee without much benefit. She also had orthoscopic surgery for a meniscal tear , as well as debridement chondroplasty for the right knee osteoarthritis which did not help her. The patient tried and failed all conservative management. The patient reported it was affecting her activities of daily living. The patient wanted to proceed with a right total knee arthroplasty. Patient underwent right total knee replacement without complications. Patient was allowed full weight bearing without any restrictions. Patient started on Morphine WHEAT [employer]IVER and able to receive 2mg every 10minutes on demand for pain control. Patient started on Lovenox injections for prevention on blood clots. Therapy was started. Day two, patient was alert and oriented. She was noted with complaints of right knee pain. On examination, there was a dressing to the right knee. Dressing was dry and intact with no signs or symptoms of infection noted to site. There was a hemovac drain at bedside. 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 Physical therapy continued. Day three, patient was noted with complaints of right knee pain. She continued to report that pain was tolerable with the prescribed pain medications. On examination, there was a dressing to right knee, dry and intact. Hemovac continued to bedside. Physical therapy continued to work with patient. They reported that she was tolerating therapy well. Patient had planned to go to [facility] on discharge for further therapy. Dr. Peralta continued to follow patient. Day four, patient was doing well with therapy. She reported some pain, but it was controlled with only oral pain medications. Dr. Peralta released patient for discharge. Vital signs stable. Labs wnl. We planned for discharge. Instructions for medications and follow up were discussed with patient and family, both voiced understanding. Patient discharged to [facility] in stable condition with EMS. - Discharge Medications Discharge Medications: Home Medication List cephalexin [Keflex] 500 mg PO Q8H #30 cap 01/27/18 [Rx] enoxaparin [Lovenox] 30 mg SC DAILY #16 units 01/27/18 [Rx] hydrocodone-acetaminophen [[place]] 1 - 2 tab PO Q4-6H PRN #30 tab 01/27/18 [Rx] iron-folic acid-mv, min cmb#15 [Hemocyte-Plus] 1 cap PO DAILY #30 cap 01/27/18 [ Rx] Prescriptions: cephalexin [Keflex] [facility]IN[facility] PERALTA enoxaparin [Lovenox] Homero Isaacs hydrocodone-acetaminophen [[place]] QUINCY PERALTA iron-folic acid-mv, min cmb#15 [Hemocyte-Plus] Homero Isaacs Home medications ascorbic acid (vitamin C) [Vitamin C] 1 tab PO DAILY 08/02/17 atorvastatin 40 mg PO DAILY 08/02/17 calcium carbonate 1,200 mg PO DAILY 08/02/17 tioditanrztm-tsmp-wsfkk acid [Centrum] 1 tab PO DAILY 08/02/17 pantoprazole 40 mg PO DAILY 08/02/17 tizanidine [Zanaflex] 2 mg PO BID #60 tab 01/31/18 - Discharge Disposition Discharge Disposition: Patient is to follow up with [facility] in one week and with Dr. Peralta in one week.
== END 2018-01-27 15:00 | DRG 470 ==
LOC: MED/SURG 06:39
PROVIDERS: ADMIT Orthopaedic Surgery; ATTEND Internal Medicine
CPT/HCPCS: 36415; 64447; 73560; 80048; 80202; 82565; 83735; 84132; 85025; 94762; 97110; 97112; 97116; 97163; 97167; 97535; A4216; A4222; J0330; J0690; J1170; J1650; J2250; J2271; J2405; J2704; J2710; J2795; J3010; J3370; J3475; J3480; J3490; J7060; J7120; J7121; J8499

== ENCOUNTER 2018-01-29 15:22 | Observation (INO) ==
--- NOTE | 2018-01-29 15:48 | DR.GENAD ---
HPI - PCP Primary Care Physician: SJ DELUNA - Complaint/Symptoms Chief Complaint Doctors Comments: Patient states she had knee replacement on and has been in rehab but has had swelling right leg with severe right calf pain, fever with problems putting weight on right leg. Spouse states the right thigh has swollen since yesterday with redness and warmth in the right upper leg. Patient states the pain is 6 of 10. She denies chest pain or SOB, nausea or vomiting. States they are giving her a shot in her abdomen daily and she think it is a blood thinner but she does not know the name. Dr. Peralta called earlier and states he wanted labs and doppler test done. Chief Complaint:: PT IS S/P RIGHT TKA ON 01/25/18. PT WAS TRANSFERED [facility] ON 01/27/18 AND SINCE THEN PT HAS HAD INCREASED SWELLING AND PAIN TO RIGHT LEG. PAIN IS LOCALIZED TO RIGHT CALF AND RIGHT KNEE. - Nurses notes reviewed Nurses Notes Review: Yes - Source History Provided: Patient - Mode of Arrival Mode of Arrival: Wheelchair - Timing Onset of Chief Complaint: 01/29/18 Came on: Gradually - Duration Duration: Constant How lon Duration: Days - Location Location: right leg - Severity Severity: Moderate - Modifying Factors Worsens:: walking and standing Improves:: nothing PMH - PMH Past Medical History: Yes Past Medical History: Dyslipidemia, Hypertension Past Medical History Comment: TIA Past Surgical History: Yes Surgical History: Hysterectomy, Ortho Surgery, Tonsillectomy Past Surgical History Comment: SKIN CANCER REMOVED FROM FACE, CARPAL TUNNEL REPAIR - Family History History of Family Medical Conditions: No (PT WAS ADOPTED) - Social History Does patient currently use any type of tobacco product: No Have you used tobacco products in the last 12 months: No Type of Tobacco Use: None Does any household member use tobacco: No Alcohol Use: None Do you use any recreational Drugs:: No Lives With: Family Lives Where: [facility] for [facility] - infectious screening In the last 2 months have you had wt loss of >10#?: NO Have you had fever, night sweats or hemotysis?: No Have you traveled outside the country in the last 6 months?: No Isolation: Standard ROS - Review of Systems Constitutional: No Symptoms Reported, Fever. negative: See HPI, Chills, Diaphoresis, Malaise, Weakness, Irritable, Fatigue, Loss of Appetite, Other Eyes: No Symptoms Reported ENTM: No Symptoms Reported. negative: See HPI, Ear Pain, Ear Discharge, Pulling on Ears, Hearing Loss, Nose Pain, Nose Discharge, Epistaxis, Nose Congestion, Mouth Pain, Mouth Swelling, Loose Teeth, Drooling, Throat Pain, Throat Swelling, Ear Foreign Body, Tooth/Dental Pain Respiratoy: No Symptoms Reported. negative: See HPI, Productive Cough, Non- Productive Cough, Moist Cough, Dry Cough, Hacking Cough, Barking Cough, Brassy Cough, Orthopnea, Short of Breath, Stridor, Wheezing, Hemoptysis, Other Cardiovascular: No Symptoms Reported. negative: See HPI, Chest Pain, Edema, Palpitations, Syncope, Cyanosis, Skin Mottling, Other Gastrointestinal/Abdominal: No Symptoms Reported. negative: See HPI, Abdominal Pain, Constipation, Diarrhea, Nausea, Vomiting, Food Intolerance, Other Genitourinary: No Symptoms Reported Neurological: No Symptoms Reported, Problems Walking (right knee and leg pain). negative: See HPI, Anxiety, Depressed, Emotional Problems, Headache, Numbness , Paresthesia, Pre-existing Deficit, Seizure, Tingling, Tremors, Weakness, Dizziness, Speech Problem, Other Musculoskeletal: No Symptoms Reported, Right, Leg, Knee (pain) Integumentary: No Symptoms Reported, Wound (right knee with dressing intact) Hematologic/Lymphatic: No Symptoms Reported Endocrine: No Symptoms Reported Psychiatric: No Symptoms Reported. negative: See HPI, Anxiety, Depression, Hallucinations, Excessive crying, Suicidal, Other PE - General Limitations: No Limitations General Appearance: Alert, In Distress (moderate) - Head Head Exam: Normal Inspection, Atraumatic, Normocephalic - Eyes Eye exam: Normal Appearance, PERRL, EOMI. negative: Scleral Icterus, Conjunctival Injection, Nystagmus, Miosis, Mydrasis, Periorbital Swelling, Periorbital Tenderness, Other - ENT ENT Exam: Normal Exam, Normal Oropharynx, Normal External Ear Exam, Mucous Membranes Moist, TM's Normal Bilaterally External Ear Exam: Normal External Inspection TM/Canal Exam: Bilateral Normal Nose Exam: Normal Nose Exam Mouth Exam: Normal Inspection. negative: Drooling, Trismus, Lip Swelling, Tongue Elevation, Tongue Swelling, Laceration, Other Throat Exam: Normal Inspection. negative: Tonsillar Erythema, Tonsillomegaly, Tonsillar Exudate, R Peritonsillar Mass, L Peritonsillar Mass, Muffled Voice, Other - Neck Neck Exam: Normal Inspection, Full ROM, Trachea Midline. negative: Tenderness, Meningismus, Lymphadenopathy, Thyromegaly, Other - Chest Chest Inspection: Normal Inspection, Symmetric Chest Wall Rise - Respiratory Respiratory Exam: Normal Lung Sounds Bilat Respiratory Exam: Bilateral Clear to Auscultation - Cardiovascular Cardiovascular Exam: Regular Rate, Normal Rhythm, Normal Heart Sounds - Abdominal Exam Abdominal Exam: Normal Inspection, Normal Bowel Sounds, Soft Abdominal Tenderness: negative: RUQ, RLQ, LUQ, LLQ, Epigastrium, Suprapubic, Diffuse, Mild, Moderate, Severe, Other - Extremities Extremities Exam: Normal Inspection, Tenderness (right knee and calf), Normal Capillary Refill, Joint Swelling (right knee), Calf Tenderness (right). negative: Full ROM (right knee with swelling and pain; decreased range of motion ) - Back Back Exam: Normal Inspection, Full ROM. negative: Tenderness, (R) CVA Tenderness, (L) CVA Tenderness, Muscle Spasm, Paraspinal Tenderness, Vertebral Tenderness, Rashes, (R) Sciatic Notch Tenderness, (L) Sciatic Notch Tendern, (R ) Straight Leg Raise, (L) Straight Leg Raise, Other - Neurologic Neurological Exam: Alert, Oriented X3, CN II-XII Intact, Reflexes Normal. negative: Normal Gait (gait not tested) - Psychiatric Psychiatric Exam: Normal Affect, Normal Mood - Skin Skin Exam: Warm, Dry, Intact, Normal Color - Vital Signs Vitals: Temperature 99.2 F Pulse Rate [Left Brachial] 87 Pulse Rate 109 Respiratory Rate 20 Blood Pressure [Left Arm] 125/58 Blood Pressure 125/55 O2 Sat by Pulse Oximetry 97 Course - Consultation Called: 18:23 (Dr. Peralta states admit to hospitalist) Call Returned: 18:23 (Dr. Isaacs to admit) - Education/Counseling Education/Counseling: Patient Educated On: Treatment, Diagnosis, Needs for Follow Up ROR - Labs Reviewed Laboratory Results Reviewed?: Yes (all labs and x-ray results reviewed and discussed with patient) Result Diagrams: 01/29/18 16:29 01/29/18 16:28 - XRAY XRAY Interpreted by: Radiologist (CXR; NO acute cardiopulmonary changes noted.) - Labs Reviewed Laboratory: WBC 8.8 X10^3/uL (3.6-10.0) 01/29/18 16: RBC 3.34 X10^6/uL (3.5-5.4) L 01/29/18 16: Hgb 9.8 g/dL (12.0-16.0) L 01/29/18 16: Hct 28.2 % (36.0-47.0) L 01/29/18 16: MCV 84.3 fL (80.0-100.0) 01/29/18 16: MCH 29.2 pg (27.0-34.0) 01/29/18 16: MCHC 34.6 g/dL (33.0-35.0) 01/29/18: RDW 14.4 % (11.6-16.5) 01/29/18 16: Plt Count 380 X10^3/uL (150.0-450.0) 01/29/18: MPV 7.7 fL (7.4-11.0) 01/29/18 16: Neut % (Auto) 67.1 % (42.0-75.0) 01/29/18 16: Lymph % (Auto) 21.0 % (21.0-51.0) 01/29/18: Gem % (Auto) 9.2 % (0.0-13.0) 01/29/18: Eos % (Auto) 1.9 % (0.9-2.9) 01/29/18: Baso % (Auto) 0.8 % (0.2-1.0) 01/29/18 16: Neut # (Auto) 5.9 x10^3/uL (2.2-4.8) H 01/29/18 16: Lymph # (Auto) 1.9 X10^3/uL (1.3-2.9) 01/29/18 16: Gem # (Auto) 0.8 x10^3/uL (0.3-0.8) 01/29/18 16: Eos # (Auto) 0.2 x10^3/uL (0.0-0.2) 01/29/18 16: Baso # (Auto) 0.1 X10^3/uL (0.0-0.1) 01/29/18 16:29 Absolute Nucleated RBC 0.0 /100WBC 01/29/18 16:29 INR Target Range - 01/29/18 16:29 INR 0.97 (0.8-1.3) 01/29/18 16:29 APTT 34.5 SECONDS (22.9-36.5) 01/29/18 16:29 PTT Comment - 01/29/18 16:29 D-Dimer 4440 ng/mL (0-400) H* 01/29/18 16:28 Sodium 138 mmol/L (136-145) 01/29/18 16:28 Corrected Sodium TNP 01/29/18 16:28 Potassium 4.0 mmol/L (3.5-5.1) 01/29/18 16:28 Chloride 103 mmol/L (98-107) 01/29/18 16:28 Carbon Dioxide 28.2 mmol/L (21-32) 01/29/18 16:28 BUN 10 mg/dL (7-18) 01/29/18 16:28 Creatinine 0.68 mg/dL (0.55-1.02) 01/29/18 16:28 Est GFR (MDRD) Af Amer > 60 (>60) 01/29/18 16:28 Est GFR (MDRD) Non-Af > 60 (>60) 01/29/18 16:28 Glucose 106 mg/dL (65-99) H 01/29/18 16:28 Lactic Acid 0.9 mmol/L (0.4-2.0) 01/29/18 16:28 Calcium 8.7 mg/dL (8.5-10.1) 01/29/18 16:28 Corrected Calcium 9.8 mg/dL (8.5-10.1) 01/29/18 16:28 Total Bilirubin 0.50 mg/dL (0.2-1.0) 01/29/18 16:28 AST 30 Units/L (15-37) 01/29/18 16:28 ALT 57 Units/L (12-78) 01/29/18 16:28 Alkaline Phosphatase 97 Units/L (46-116) 01/29/18 16:28 Total Protein 6.7 g/dL (6.4-8.2) 01/29/18 16:28 Albumin 2.6 g/dL (3.4-5.0) L 01/29/18 16:28 Globulin 4.1 g/dL (2.5-4.5) 01/29/18 16:28 Albumin/Globulin Ratio 0.6 Ratio (1.1-2.1) L 01/29/18 16:28 - Diagnosis Discharge Problem: Status post right knee replacement, Pain of right leg, Abnormal laboratory test Cellulitis Qualifiers: Site of cellulitis of extremity: lower extremity Narrative Support Text: Right leg pain r/o DVT (NAJMA GOMEZ) - Discharge Plan Disposition: ADMITTED INPATIENT Condition: Stable - Follow ups/Referrals Follow ups/Referrals: jS Deluna [Primary Care Provider] - 3 days - Instructions
[2018-01-29] MEDS ORDERED: NS 1000 ML 0 ML ONE (16:09)
--- NOTE | 2018-01-29 16:13 | RAD ---
Examination: Chest, PA and lateral views History: Pneumonia Comparison reference 01/20/2018 Findings: Continued normal heart size with no acute pulmonary, pleural or hilar lesion. Impression: No acute or significant findings. Reported By:
[2018-01-29 16:42] LABS: BASOPHILS # (AUTO) 0.1 X10^3/uL (0.0-0.1); BASOPHILS % (AUTO) 0.8 % (0.2-1.0); EOSINOPHILS # (AUTO) 0.2 x10^3/uL (0.0-0.2); EOSINOPHILS % (AUTO) 1.9 % (0.9-2.9); HEMATOCRIT 28.2 % (36.0-47.0); HEMOGLOBIN 9.8 g/dL (12.0-16.0); LYMPHOCYTES # (AUTO) 1.9 X10^3/uL (1.3-2.9); MEAN CORPUSCULAR HEMOGLOBIN 29.2 pg (27.0-34.0); MEAN CORPUSCULAR HGB CONC 34.6 g/dL (33.0-35.0); MEAN CORPUSCULAR VOLUME 84.3 fL (80.0-100.0); MEAN PLATELET VOLUME 7.7 fL (7.4-11.0); MONOCYTES # (AUTO) 0.8 x10^3/uL (0.3-0.8); MONOCYTES % (AUTO) 9.2 % (0.0-13.0); NEUTROPHILS # (AUTO) 5.9 x10^3/uL (2.2-4.8); NEUTROPHILS % (AUTO) 67.1 % (42.0-75.0); PLATELET COUNT 380 X10^3/uL (150.0-450.0); RED BLOOD COUNT 3.34 X10^6/uL (3.5-5.4); RED CELL DISTRIBUTION WIDTH 14.4 % (11.6-16.5); WHITE BLOOD COUNT 8.8 X10^3/uL (3.6-10.0)
[2018-01-29 16:48] LABS: ALANINE AMINOTRANSFERASE 57 Units/L (12-78); ALBUMIN 2.6 g/dL (3.4-5.0); ALKALINE PHOSPHATASE 97 Units/L (46-116); ASPARTATE AMINO TRANSFERASE 30 Units/L (15-37); BLOOD UREA NITROGEN 10 mg/dL (7-18); CALCIUM 8.7 mg/dL (8.5-10.1); CARBON DIOXIDE 28.2 mmol/L (21-32); CHLORIDE 103 mmol/L (98-107); COR CA(FOR HYPOALB) 9.8 mg/dL (8.5-10.1); CREATININE 0.68 mg/dL (0.55-1.02); SODIUM 138 mmol/L (136-145); TOTAL PROTEIN 6.7 g/dL (6.4-8.2); eGFR NON BLACK RACES > 60 (>60)
[2018-01-29 16:52] LABS: LACTIC ACID 0.9 mmol/L (0.4-2.0)
[2018-01-29] MEDS ORDERED: MERREM VIAL 1 G in NS 100 ML IV + SPIKE MINIBAG* 100 ML IV STA (18:13)
[2018-01-29] MEDS ORDERED: NS 100 ML IV 100 ML IV ONE (18:26)
[2018-01-29] MEDS ORDERED: NS 1000 ML 1,000 ML ONE (18:26)
[2018-01-29] MEDS ORDERED: MERREM VIAL ONE (18:27)
[2018-01-29] MEDS ORDERED: MOTRIN TAB 600 MG PO PRN (18:35)
[2018-01-29] MEDS ORDERED: PHENERGAN TAB 25 MG PO PRN (18:35)
[2018-01-29] MEDS ORDERED: NORCO 5/325 MG TAB PO PRN (18:35)
[2018-01-29] MEDS ORDERED: MORPHINE SULFATE INJ 2 MG INJ IVP PRN (18:35)
[2018-01-29] MEDS ORDERED: LOVENOX INJ 80 MG SYR SC SCH (19:00)
[2018-01-29] MEDS: ZOSYN VIAL 3.375 GRAMS 3.375 G in NS 100 ML IV + SPIKE MINIBAG* 100 ML IV SCH (21:03)
[2018-01-29] MEDS: LOVENOX INJ 80 MG SYR SC SCH (21:04)
[2018-01-29 23:30] VITALS: BMI 27.2
[2018-01-29] MEDS ORDERED: PREVNAR 13 IM ONE (23:30)
[2018-01-30] MEDS: ZOSYN VIAL 3.375 GRAMS 3.375 G in NS 100 ML IV + SPIKE MINIBAG* 100 ML IV SCH ×3 (05:55→21:42)
[2018-01-30 06:14] LABS: BASOPHILS # (AUTO) 0.1 X10^3/uL (0.0-0.1); BASOPHILS % (AUTO) 0.7 % (0.2-1.0); EOSINOPHILS # (AUTO) 0.1 x10^3/uL (0.0-0.2); EOSINOPHILS % (AUTO) 1.5 % (0.9-2.9); HEMATOCRIT 27.6 % (36.0-47.0); HEMOGLOBIN 9.6 g/dL (12.0-16.0); LYMPHOCYTES # (AUTO) 1.8 X10^3/uL (1.3-2.9); LYMPHOCYTES % (AUTO) 22.7 % (21.0-51.0); MEAN CORPUSCULAR HEMOGLOBIN 29.2 pg (27.0-34.0); MEAN CORPUSCULAR HGB CONC 34.8 g/dL (33.0-35.0); MEAN PLATELET VOLUME 7.6 fL (7.4-11.0); MONOCYTES # (AUTO) 0.8 x10^3/uL (0.3-0.8); MONOCYTES % (AUTO) 9.3 % (0.0-13.0); NEUTROPHILS # (AUTO) 5.3 x10^3/uL (2.2-4.8); NEUTROPHILS % (AUTO) 65.8 % (42.0-75.0); PLATELET COUNT 390 X10^3/uL (150.0-450.0); RED BLOOD COUNT 3.29 X10^6/uL (3.5-5.4); RED CELL DISTRIBUTION WIDTH 14.5 % (11.6-16.5); WHITE BLOOD COUNT 8.1 X10^3/uL (3.6-10.0)
[2018-01-30 06:41] LABS: ALANINE AMINOTRANSFERASE 55 Units/L (12-78); ALBUMIN 2.4 g/dL (3.4-5.0); ALKALINE PHOSPHATASE 92 Units/L (46-116); ASPARTATE AMINO TRANSFERASE 32 Units/L (15-37); BLOOD UREA NITROGEN 7 mg/dL (7-18); CALCIUM 8.7 mg/dL (8.5-10.1); CARBON DIOXIDE 27.5 mmol/L (21-32); CHLORIDE 104 mmol/L (98-107); CREATININE 0.67 mg/dL (0.55-1.02); SODIUM 140 mmol/L (136-145); TOTAL PROTEIN 6.6 g/dL (6.4-8.2); eGFR NON BLACK RACES > 60 (>60)
[2018-01-30] MEDS: PROTONIX TAB 40 MG PO SCH (08:13)
[2018-01-30] MEDS: LIPITOR TAB 20 MG PO SCH (08:14)
[2018-01-30] MEDS: HEMOCYTE-PLUS PO SCH (08:14)
[2018-01-30] MEDS: LOVENOX INJ 80 MG SYR SC SCH ×2 (08:16→21:42)
[2018-01-30] MEDS ORDERED: HEMOCYTE-PLUS PO SCH (09:00)
--- NOTE | 2018-01-30 14:41 | VAS ---
HISTORY: Extremity pain, swelling, and edema Study: Right lower extremity Doppler venous ultrasound. TECHNIQUE: Multiple valentine scale and color flow Doppler images of the deep venous system were obtained of the right lower extremity. FINDINGS: The deep venous system of the right lower extremity evaluated from the level of the common femoral ve in through the popliteal vein. Normal color flow and augmentation can be observed. In addition, nor mal compression is seen throughout the deep venous system. IMPRESSION: 1. Negative examination for DVT. Reported By:
--- NOTE | 2018-01-30 15:49 | DR.H&P ---
H&P - History & Physical for Day of: H&P Date: 01/31/18 - Chief Complaint Chief Complaint: INCREASED RIGHT LEG PAIN AND SWELLING - History of Present Illness History of Present Illness: IS A 67 YEAR OLD PATIENT OF AND SJ DELUNA. SHE IS STATUS POST RIGHT TKA ON 01/25/18. SHE PRESENTED TO THE EMERGENCY ROOM WITH COMPLAINTS OF RIGHT LEG EDEMA AND SEVERE RIGHT CALF PAIN AND FEVER. SHE DENIES SHORTNESS OF BREATH, NAUSEA, OR VOMITING. PATIENT WAS DISCHARGED FROM THE HOSPITAL ON WEDNESDAY AND WAS SENT TO [facility] IN [place], [place] FOR REHABILITATION. SHE WAS DISCHARGED ON LOVENOX 30MG SC DAILY. ON ARRIVAL, VITALS WERE 99.2-109-20-96%-128/62. LABS WERE OBTAINED. ABNORMAL LAB VALUES INCLUDE THE FOLLOWING: RBC 3.34, HGB 9.8, HCT 28.2, D-DIMER 4440, GLUCOSE 106, ALBUMIN 2.6. A RIGHT LOWER EXTREMITY VENOUS DOPPLER WAS OBTAINED AND REVEALED NEGATIVE FOR DVT. SHE WAS GIVEN LOVENOX 80MG SC X 1 DOSE IN THE ER WELL MEROPENEM 1GM IV X 1 DOSE. SHE WAS ADMITTED FOR FURTHER EVALUATION AND TREATMENT FOR EARLY CELLULITIS, RULE OUT DVT. SHE WAS STARTED ON LOVENOX 80MG SC BID, ZOSYN 3.375GM IV TID, MORPHINE 1-2MG IV Q3H PRN PAIN. HOME MEDICATIONS WERE RESUMED. WE PLANNED TO FOLLOW UP WITH AM LABS AND CONTINUE TO MONITOR PATIENT. - Past Medical History Past Medical History: Dyslipidemia, Hypertension - Past Surgical History Surgical History: Hysterectomy, Ortho Surgery, Tonsillectomy Additional Surgical History: RIGHT TKA - Social History Does patient currently use any type of tobacco product: No Have you used tobacco products in the last 12 months: No Type of Tobacco Use: None Does any household member use tobacco: No Alcohol Use: None Drug Use: None - Medications Home Medications: Sulfa (Sulfonamide Antibiotics) [SULFA] Allergy (Verified 08/02/17 15:02) - Review of Systems Constitutional: Weakness Eyes: No Symptoms Reported ENT: No Symptoms Reported Respiratory: No Symptoms Reported Cardiovascular: Edema (RIGHT CALF EDEMA ) Gastrointestinal: No Symptoms Reported Genitourinary: No Symptoms Reported Musculoskeletal: See HPI (RIGHT KNEE, CALF PAIN ) Skin: See HPI (ERYTHEMA TO RIGHT LOWER LEG. ) Neurological: Weakness - Physical Exam Vital Signs: Temperature 98.4 F Pulse Rate [Left Brachial] 93 Pulse Rate 109 Respiratory Rate 20 Blood Pressure [Right Arm] 125/65 Blood Pressure [Left Arm] 125/58 Blood Pressure 125/55 O2 Sat by Pulse Oximetry 93 Oriented: Normal Eyes: Normal Ear: Normal Nose: Normal Throat: Normal Respiratory: Clear Throughout Cardiovascular: Edema (RI) : Normal Auscultation: Bowel Sounds: Normal Palpation: Normal Tenderness: Normal Skin: Red, Tender, Hot (RIGHT KNEE, CALF ), Wound Musculoskeletal: Right, Knee, Leg, Swelling, Tender Psychiatric: Normal Mood Description: Calm Affect: Normal Speech Pattern: Clear - Assessment/Plan (1) Cellulitis Qualifiers: Site of cellulitis of extremity: lower extremity Status: Acute Plan: ZOSYN IV, BLOOD CULTURES, CONTINUE TO MONITOR (2) Status post right knee replacement Status: Acute Plan: PAIN CONTROL, DVT PROPHYLAXIS, CONTINUE TO MONITOR (3) Pain of right leg Status: Acute - Allergies Allergies/Adverse Reactions: Allergies Allergy/AdvReac Type Severity Reaction Status Date / Time Sulfa (Sulfonamide Allergy Verified 08/02/17 15:02 Antibiotics) [SULFA]
[2018-01-31] MEDS: ZOSYN VIAL 3.375 GRAMS 3.375 G in NS 100 ML IV + SPIKE MINIBAG* 100 ML IV SCH (05:58)
[2018-01-31 06:25] LABS: BASOPHILS # (AUTO) 0.1 X10^3/uL (0.0-0.1); BASOPHILS % (AUTO) 0.8 % (0.2-1.0); EOSINOPHILS # (AUTO) 0.1 x10^3/uL (0.0-0.2); EOSINOPHILS % (AUTO) 1.8 % (0.9-2.9); HEMATOCRIT 29.4 % (36.0-47.0); HEMOGLOBIN 10.1 g/dL (12.0-16.0); LYMPHOCYTES # (AUTO) 2.2 X10^3/uL (1.3-2.9); LYMPHOCYTES % (AUTO) 27.5 % (21.0-51.0); MEAN CORPUSCULAR HEMOGLOBIN 28.9 pg (27.0-34.0); MEAN CORPUSCULAR HGB CONC 34.5 g/dL (33.0-35.0); MEAN CORPUSCULAR VOLUME 83.6 fL (80.0-100.0); MEAN PLATELET VOLUME 7.4 fL (7.4-11.0); MONOCYTES # (AUTO) 0.7 x10^3/uL (0.3-0.8); MONOCYTES % (AUTO) 9.2 % (0.0-13.0); NEUTROPHILS # (AUTO) 4.8 x10^3/uL (2.2-4.8); NEUTROPHILS % (AUTO) 60.7 % (42.0-75.0); PLATELET COUNT 446 X10^3/uL (150.0-450.0); RED BLOOD COUNT 3.51 X10^6/uL (3.5-5.4); RED CELL DISTRIBUTION WIDTH 14.4 % (11.6-16.5); WHITE BLOOD COUNT 7.9 X10^3/uL (3.6-10.0)
[2018-01-31 06:27] LABS: ALANINE AMINOTRANSFERASE 58 Units/L (12-78); ALBUMIN 2.5 g/dL (3.4-5.0); ALKALINE PHOSPHATASE 91 Units/L (46-116); ASPARTATE AMINO TRANSFERASE 33 Units/L (15-37); BLOOD UREA NITROGEN 10 mg/dL (7-18); CALCIUM 8.8 mg/dL (8.5-10.1); CARBON DIOXIDE 30.4 mmol/L (21-32); CHLORIDE 104 mmol/L (98-107); CREATININE 0.72 mg/dL (0.55-1.02); SODIUM 140 mmol/L (136-145); TOTAL PROTEIN 6.7 g/dL (6.4-8.2); eGFR NON BLACK RACES > 60 (>60)
[2018-01-31] MEDS: LOVENOX INJ 80 MG SYR SC SCH (09:12)
[2018-01-31] MEDS: PROTONIX TAB 40 MG PO SCH (09:13)
[2018-01-31] MEDS: LIPITOR TAB 20 MG PO SCH (09:13)
[2018-01-31] MEDS: HEMOCYTE-PLUS PO SCH (09:13)
[2018-01-31 14:26] VITALS: BP 126/61
--- NOTE | 2018-03-09 22:32 | DR.CARTERD ---
- Discharge Summary for: Discharge Summary for Date of:: 01/31/18 - Admission Date Date of Admission: 01/29/18 - Admission Diagnoses Admission Diagnosis: (1) Cellulitis (2) Status post right knee replacement (3) Pain of right leg - Discharge Date Discharge Date: 01/31/18 - Discharge Diagnoses Discharge Diagnosis: (1) Cellulitis (2) Status post right knee replacement (3) Pain of right leg - Hospital Course Hospital Course: MS. ARDON IS A 67 YEAR OLD PATIENT OF DR. ORNELAS AND SJ DELUNA. SHE WAS STATUS POST RIGHT TKA ON 01/25/18. SHE PRESENTED TO THE EMERGENCY ROOM WITH COMPLAINTS OF RIGHT LEG EDEMA AND SEVERE RIGHT CALF PAIN AND FEVER. SHE DENIED SHORTNESS OF BREATH, NAUSEA, OR VOMITING. PATIENT WAS DISCHARGED FROM THE HOSPITAL ON WEDNESDAY AND WAS SENT TO [facility] IN [place], [place] FOR REHABILITATION. SHE WAS DISCHARGED ON LOVENOX 30MG SC DAILY. ON ARRIVAL, VITALS WERE 99.2-109-20-96%-128/62. LABS WERE OBTAINED. ABNORMAL LAB VALUES INCLUDED THE FOLLOWING: RBC 3.34, HGB 9.8, HCT 28.2, D-DIMER 4440, GLUCOSE 106, ALBUMIN 2.6. A RIGHT LOWER EXTREMITY VENOUS DOPPLER WAS OBTAINED AND REVEALED NEGATIVE FOR DVT. SHE WAS GIVEN LOVENOX 80MG SC X 1 DOSE IN THE ER WELL MEROPENEM 1GM IV X 1 DOSE. SHE WAS ADMITTED FOR FURTHER EVALUATION AND TREATMENT FOR EARLY CELLULITIS, RULE OUT DVT. SHE WAS STARTED ON LOVENOX 80MG SC BID, ZOSYN 3.375GM IV TID, MORPHINE 1-2MG IV Q3H PRN PAIN. HOME MEDICATIONS WERE RESUMED. WE CONTINUED TO MONITOR PATIENT. WE CONTINUED WITH IV ANTIBIOTICS AND LOVENOX BID. ON DAY TWO, RIGHT LEG CONTINUED WITH REDNESS AND TENDERNESS. ON DAY THREE, PATIENT REPORTED HER LEG WAS FEELING BETTER WITH LESS PAIN. THERE WAS LESS REDNESS NOTED TO RIGHT LEG. WE PLANNED FOR DISCHARGE WITH ORAL ANTIBIOTICS AND LOVENOX. INSTRUCTIONS FOR MEDICATIONS AND FOLLOW UP WERE DISCUSSED WITH PATIENT AND FAMILY, BOTH VOICED UNDERSTANDING. PATIENT DISCHARGED HOME IN STABLE CONDITION WITH FAMILY. - Discharge Medications Discharge Medications: Home Medication List tizanidine [Zanaflex] 2 mg PO BID #60 tab 01/31/18 [Rx] Prescriptions: tizanidine [Zanaflex] Homero Isaacs Home medications ascorbic acid (vitamin C) [Vitamin C] 1 tab PO DAILY 08/02/17 atorvastatin 40 mg PO DAILY 08/02/17 calcium carbonate 1,200 mg PO DAILY 08/02/17 [id number] acid [Centrum] 1 tab PO DAILY 08/02/17 pantoprazole 40 mg PO DAILY 08/02/17 cephalexin [Keflex] 500 mg PO Q8H #30 cap 01/27/18 enoxaparin [Lovenox] 30 mg SC DAILY #16 units 01/27/18 hydrocodone-acetaminophen [[place]] 1 - 2 tab PO Q4-6H PRN #30 tab 01/27/18 iron-folic acid-mv, min cmb#15 [Hemocyte-Plus] 1 cap PO DAILY #30 cap - Discharge Disposition Discharge Disposition: PATIENT IS TO FOLLOW UP WITH DR. ORNELAS IN ONE WEEK AND WITH DR. SJ DELUNA IN ONE WEEK.
== END 2018-01-31 14:30 | disposition home health service (06) ==
LOC: MED/SURG 15:22 → ER 15:22 → MED/SURG 19:03
PROVIDERS: ADMIT Internal Medicine; ATTEND Internal Medicine
DX: L03.115 Cellulitis of right lower limb; E78.2 Mixed hyperlipidemia; Z96.651 Presence of right artificial knee joint; M79.661 Pain in right lower leg; I10 Essential (primary) hypertension; R26.89 Other abnormalities of gait and mobility; R60.0 Localized edema
CPT/HCPCS: 36415; 71020; 71046; 80053; 83605; 85025; 85378; 85610; 85730; 87040; 93971; 96365; 96367; 96372; 96374; 97162; 97167; 99283; 99284; A4216; A4222; G0378; J1650; J2185; J2270; J2543; J7030; J7050